=== PATIENT | female | born 1960 | race American Indian/Alaskan Native ===

== ENCOUNTER 2021-12-02 20:43 | Observation (INO) | payer OTHER, SELFPAY ==
[2021-12-02 21:30] LABS: Mucus,Urine FEW /HPF
[2021-12-02 21:32] LABS: Color,Urine Straw (Yellow)
[2021-12-02 21:33] LABS: Bilirubin,Urine NEG (Negative); Blood,Urine Trace (Negative); Protein,Urine <15 mg/dL mg/dL (Negative)
[2021-12-02 21:34] LABS: Urobilinogen,Urine < 2.0 mg/dL (<2.0)
[2021-12-03] MEDS ORDERED: MORPHINE 4 MG/1 ML INJ IV ONE ×2 (03:27→06:29)
[2021-12-03] MEDS ORDERED: ONDANSETRON 4 MG/2 ML INJ IV ONE ×2 (03:27→06:29)
--- NOTE | 2021-12-03 04:08 | Cat Scan Report ---
CT ABDOMEN AND PELVIS WITHOUT CONTRAST INDICATION / CLINICAL INFORMATION: Generalized abdominal pain. TECHNIQUE: All CT scans at this location are performed using CT dose reduction for ALARA by means of automated exposure control. COMPARISON: None available. FINDINGS: ABDOMEN: The gallbladder is surgically absent. The liver, spleen, bile ducts, pancreas, adrenal gland s and kidneys demonstrate no significant abnormality. There is no evidence of bowel obstruction or fr ee air. No adenopathy is present. There are mild atherosclerotic calcifications involving the aorta a nd its branches without aneurysm. The lung bases are clear. PELVIS: The appendix is mildly dilated and thick-walled, measuring up to 1 cm transverse. There is mi ld inflammation in the periappendiceal fat. I do not identify an appendicolith, abscess, extraluminal gas or bowel obstruction. The distal ureters and urinary bladder are normal. The uterus and adnexal regions are unremarkable. T here is no evidence of diverticulitis. I do not identify a hernia area mild spondylosis is present. IMPRESSION: Acute uncomplicated appendicitis. Signer Name: Jaun Rai MD Signed: 12/03/2021 4:03 AM Workstation Name: [id number]
[2021-12-03 04:13] LABS: Basophils # (Auto) 0.1 K/mm3 (0.0-0.1); Basophils % (Auto) 0.6 % (0.0-1.8); Eosinophils # (Auto) 0.1 K/mm3 (0.0-0.4); Eosinophils % (Auto) 0.4 % (0.0-4.3); Hematocrit 41.8 % (30.3-42.9); Hemoglobin 13.7 gm/dl (10.1-14.3); Lymphocytes # (Auto) 3.9 K/mm3 (1.2-5.4); Lymphocytes % (Auto) 25.2 % (13.4-35.0); Mean Corpuscular HGB Conc 33 % (30-34); Mean Corpuscular Volume 88 fl (79-97); Monocytes # (Auto) 0.8 K/mm3 (0.0-0.8); Monocytes % (Auto) 5.2 % (0.0-7.3); Platelet Count 322 K/mm3 (140-440); Red Blood Count 4.73 M/mm3 (3.65-5.03); Red Cell Distribution Width 14.4 % (13.2-15.2)
[2021-12-03 04:36] LABS: Alanine Aminotransferase 26 units/L (7-56); Albumin 4.4 g/dL (3.9-5); BUN/Creatinine Ratio 15; Blood Urea Nitrogen 12 mg/dL (7-17); Calcium 9.4 mg/dL (8.4-10.2); Hemolysis Index 7
--- NOTE | 2021-12-03 06:30 | Emergency Department Report ---
ED Abdominal Pain HPI - General Chief Complaint: Abdominal Pain Stated Complaint: abdominal pain PUI?: No Time Seen by Provider: 12/03/21 06:15 Source: patient Mode of arrival: Ambulatory Limitations: No Limitations - History of Present Illness Initial Comments: 61 year old who denies any significant with complaints of abd pain. Patient states that her symptoms started about 2 days ago. She describes it as a constant worsening pain with associated constipation and decrease appetite. She denies any nausea or vomiting. She states that her last bowel movement was about 3-4 days ago. She has not tried any otc meds for constipation. She denies fever, chills, UTI symptoms or any additional instructions. Her abdominal surgery in past includes cholecystectomy. MD Complaint: abdominal pain -: days(s) (2) Severity scale (0 -10): 5 - Related Data Previous Rx's Medication Instructions Recorded Last Taken Type Nitrofurantoin Haywood/M-Cryst 100 mg PO Q12HR #14 capsule 03/28/20 Unknown Rx [Macrobid CAP] Ondansetron [Zofran Odt] 4 mg PO Q8HR PRN #15 tab.rapdis 03/28/20 Unknown Rx Allergies Allergy/AdvReac Type Severity Reaction Status Date / Time No Known Allergies Allergy Unverified 03/28/20 12:24 ED Review of Systems ROS: Stated complaint: abdominal pain Other details as noted in HPI Comment: All other systems reviewed and negative Constitutional: denies: chills, fever Eyes: denies: eye pain, eye discharge, vision change ENT: denies: ear pain, throat pain, dental pain, hearing loss, epistaxis, congestion Endocrine: no symptoms reported Gastrointestinal: abdominal pain, constipation. denies: nausea, vomiting, diarrhea, hematemesis, melena, hematochezia Genitourinary: denies: urgency, dysuria, frequency, hematuria, discharge, abno rmal menses, dyspareunia Musculoskeletal: denies: back pain, joint swelling, arthralgia, myalgia Skin: denies: rash, lesions, change in color, change in hair/nails, pruritus Neurological: denies: headache, weakness, numbness, paresthesias, confusion, abnormal gait, vertigo Psychiatric: denies: anxiety, depression, visual hallucinations, homicidal thoughts, suicidal thoughts Hematological/Lymphatic: denies: easy bleeding, easy bruising, swollen glands ED Past Medical Hx - Surgical History Hx Cholecystectomy: Yes Additional Surgical History: D/C / ID - Social History Smoking Status: Never Smoker Substance Use Type: None - Medications Home Medications: Home Medications Medication Instructions Recorded Confirmed Last Taken Type Nitrofurantoin [place]wood/M-Cryst 100 mg PO Q12HR #14 capsule 03/28/20 Unknown Rx [Macrobid CAP] Ondansetron [Zofran Odt] 4 mg PO Q8HR PRN #15 tab.rapdis 03/28/20 Unknown Rx ED Physical Exam - General Limitations: No Limitations General appearance: alert, in distress (appears uncomfortable due to pain), obese - Head Head exam: Present: atraumatic, normocephalic, normal inspection - Eye Eye exam: Present: normal appearance, PERRL, EOMI Pupils: Present: normal accommodation - Neck Neck exam: Present: normal inspection, full ROM. Absent: meningismus - Respiratory Respiratory exam: Present: normal lung sounds bilaterally. Absent: respiratory distress, wheezes, rales, rhonchi - Cardiovascular Cardiovascular Exam: Present: normal rhythm, tachycardia, normal heart sounds - GI/Abdominal GI/Abdominal exam: Present: soft, tenderness (TTP right lower quandrant with guarding but no rebound or rigidity. ). Absent: distended - Neurological Exam Neurological exam: Present: alert, oriented X3, CN II-XII intact, normal gait - Psychiatric Psychiatric exam: Present: normal affect, normal mood - Skin Skin exam: Present: intact ED Course Vital Signs 12/02/21 12/03/21 20:57 07:01 Temperature 99.1 F 98.9 F Pulse Rate 116 H 86 Respiratory 15 16 Rate Blood Pressure 118/88 131/79 O2 Sat by Pulse 95 91 Oximetry ED Medical Decision Making - Lab Data Result diagrams: 12/03/21 03:31 12/03/21 03:31 - Radiology Data Radiology results: report reviewed Patient: CATRACHITA BURGESS MR#: [id number] : 1960 Acct:[id number] Age/Sex: 61 / F ADM Date: 12/02/21 Loc: ED Attending Dr: Ordering Physician: JUAN DAVID MAN MD Date of Service: 12/03/21 Procedure(s): CT abdomen pelvis wo con Accession Number(s): [id number] cc: ED DOCMD CT ABDOMEN AND PELVIS WITHOUT CONTRAST INDICATION / CLINICAL INFORMATION: Generalized abdominal pain. TECHNIQUE: All CT scans at this location are performed using CT dose reduction for ALARA by means of automated exposure control. COMPARISON: None available. FINDINGS: ABDOMEN: The gallbladder is surgically absent. The liver, spleen, bile ducts, pancreas, adrenal glands and kidneys demonstrate no significant abnormality. There is no evidence of bowel obstruction or free air. No adenopathy is present. There are mild atherosclerotic calcifications involving the aorta and its branches without aneurysm. The lung bases are clear. PELVIS: The appendix is mildly dilated and thick-walled, measuring up to 1 cm transverse. There is mild inflammation in the periappendiceal fat. I do not identify an appendicolith, abscess, extraluminal gas or bowel obstruction. The distal ureters and urinary bladder are normal. The uterus and adnexal regions are unremarkable. There is no evidence of diverticulitis. I do not identify a hernia area mild spondylosis is present. IMPRESSION: Acute uncomplicated appendicitis. Signer Name: Jaun Rai MD Signed: 12/03/2021 4:03 AM Workstation Name: [id number] Transcribed By: RT Dictated By: Jaun Ria MD Electronically Authenticated By: Jaun Rai MD Signed Date/Time: 12/03/21402 DD/ 0359 TD/TT: - Medical Decision Making 0653: Work up today shows acute uncomplicated appendicitis. Wbc is 15. Discussed results with patient and she understand reason for admission. Is currently resting comfortably but is requesting additional pain meds. Morphine 4 mg as well as repeat Zofran 4 mg ordered. She is dosing also ordered. Repeat vital signs ordered and pending. Discussed case with Dr. Jacob Silverio, general surgery on-call -patient to be admitted to the hospitalist service and he will hopefully take patient to the OR later on today 0724: Discussed case with Dr Jerez, hospitalist for admission Critical care attestation.: If time is entered above; I have spent that time in minutes in the direct care of this critically ill patient, excluding procedure time. ED Disposition Clinical Impression: Acute appendicitis Disposition: ADMITTED INPATIENT Is pt being admited?: Yes Does the pt Need Aspirin: No Condition: Stable Instructions: Abdominal Pain (ED) Referrals: PRIMARY CARE, [Primary Care Provider] - 3-5 Days
[2021-12-03] MEDS ORDERED: PIPERACILLIN/TAZOBACTAM 3.375 3.375 GM/50 ML BAG IV ONE (06:38)
[2021-12-03] MEDS ORDERED: SODIUM CHLORIDE 0.9% 1000 ML 1,000 ML IV ONE (07:16)
--- NOTE | 2021-12-03 08:00 | Consultation ---
History of Present Illness Consult date: 12/03/21 Reason for consult: abdominal pain Chief complaint: abdo pain - History of present illness History of present illness: 61 year old who denies any significant with complaints of abd pain. Patient states that her symptoms started about 2 days ago. She describes it as a constant worsening pain with associated constipation and decrease appetite. She denies any nausea or vomiting. She states that her last bowel movement was about 3-4 days ago. She has not tried any otc meds for constipation. She denies fever, chills, UTI symptoms or any additional instructions. Her abdominal surgery in past includes cholecystectomy. CT abdo with uncompicated appendicitis. Medications and Allergies Allergies Allergy/AdvReac Type Severity Reaction Status Date / Time No Known Allergies Allergy Verified 12/03/21 08:24 Home Medications Medication Instructions Recorded Confirmed Last Taken Type Nitrofurantoin Brown/M-Cryst 100 mg PO Q12HR #14 capsule 03/28/20 Unknown Rx [Macrobid CAP] Ondansetron [Zofran Odt] 4 mg PO Q8HR PRN #15 tab.rapdis 03/28/20 Unknown Rx Active Meds: Active Medications Sodium Chloride (Nacl 0.9% 1000 Ml) 1,000 mls @ 999 mls/hr IV BOLUS ONE Stop: 12/03/21 08:16 Exam Vital Signs Temp Pulse Resp BP Pulse Ox 99.1 F 116 H 15 118/88 95 12/02/21 20:57 12/02/21 20:57 12/02/21 20:57 12/02/21 20:57 12/02/21 20:57 - General physical appearance Positive: well developed, severe distress - Neck Positive: no masses, no bruits, trachea midline - Respiratory Positive: normal expansion - Cardiovascular Rhythm: regular - Extremities Extremities: no ischemia, No edema - Abdomen Abdomen: Present: soft, tender, rebound. Absent: distended, masses - Neurologic Neurologic: alert and oriented to time, place and person, motor strength and sensation are grossly intact, CN II-XII intact Results - Labs 12/03/21 03:31 12/03/21 03:31 Abnormal lab results 12/03/21 12/03/21 Range/Units 03:31 03:31 WBC 15.4 H (4.5-11.0) K/mm3 Seg Neutrophils # 10.6 H (1.8-7.7) K/mm3 Chloride 97.5 L (98-107) mmol/L Glucose 110 H (65-100) mg/dL Alkaline Phosphatase 151 H (35-129) units/L Total Protein 8.6 H (6.3-8.2) g/dL Diabetes panel 12/03/21 Range/Units 03:31 Sodium 137 (137-145) mmol/L Potassium 4.1 (3.6-5.0) mmol/L Chloride 97.5 L (98-107) mmol/L Carbon Dioxide 24 (22-30) mmol/L BUN 12 (7-17) mg/dL Creatinine 0.8 (0.6-1.2) mg/dL Glucose 110 H (65-100) mg/dL Calcium 9.4 (8.4-10.2) mg/dL AST 24 (5-40) units/L ALT 26 (7-56) units/L Alkaline Phosphatase 151 H (35-129) units/L Total Protein 8.6 H (6.3-8.2) g/dL Albumin 4.4 (3.9-5) g/dL Calcium panel 12/03/21 Range/Units 03:31 Calcium 9.4 (8.4-10.2) mg/dL Albumin 4.4 (3.9-5) g/dL Pituitary panel 12/03/21 Range/Units 03:31 Sodium 137 (137-145) mmol/L Potassium 4.1 (3.6-5.0) mmol/L Chloride 97.5 L (98-107) mmol/L Carbon Dioxide 24 (22-30) mmol/L BUN 12 (7-17) mg/dL Creatinine 0.8 (0.6-1.2) mg/dL Glucose 110 H (65-100) mg/dL Calcium 9.4 (8.4-10.2) mg/dL Adrenal panel 12/03/21 Range/Units 03:31 Sodium 137 (137-145) mmol/L Potassium 4.1 (3.6-5.0) mmol/L Chloride 97.5 L (98-107) mmol/L Carbon Dioxide 24 (22-30) mmol/L BUN 12 (7-17) mg/dL Creatinine 0.8 (0.6-1.2) mg/dL Glucose 110 H (65-100) mg/dL Calcium 9.4 (8.4-10.2) mg/dL Total Bilirubin 0.50 (0.1-1.2) mg/dL AST 24 (5-40) units/L ALT 26 (7-56) units/L Alkaline Phosphatase 151 H (35-129) units/L Total Protein 8.6 H (6.3-8.2) g/dL Albumin 4.4 (3.9-5) g/dL Assessment and Plan 61 yo female with appendicitis. Plan Lap appy later today.
[2021-12-03] MEDS ORDERED: MORPHINE 4 MG/1 ML INJ IV PRN (08:35)
--- NOTE | 2021-12-03 08:38 | Anesthesia Consultation ---
Anesthesia Consult and Med Hx Date of service: 12/03/21 - Airway Anesthetic Teeth Evaluation: Poor (some chipped and missing teeth on the bottom), Dentures, Partials (upper) ROM Head & Neck: Adequate Mental/Hyoid Distance: Adequate Mallampati Class: Class III Intubation Access Assessment: Possibly Difficult - Pre-Operative Health Status ASA Pre-Surgery Classification: ASA2 Proposed Anesthetic Plan: General - Other Systems Hx Obesity: Yes - Additional Comments Anesthesia Medical History Comments: abdominal pain, N&V, acute appendicitis
--- NOTE | 2021-12-03 08:39 | Anesthesia Day of Surgery ---
Anesthesia Day of Surgery - Day of Surgery Patient Examined: Yes Patient H&P Reviewed: Yes Patient is NPO: Yes
[2021-12-03] MEDS ORDERED: LACTATED RINGERS 1,000 ML IV SCH (08:45)
[2021-12-03] MEDS ORDERED: MIDAZOLAM 2 MG/2 ML INJ IV NR (09:00)
[2021-12-03] MEDS ORDERED: ONDANSETRON 4 MG/2 ML INJ IV PRN (09:00)
[2021-12-03] MEDS ORDERED: ACETAMINOPHEN 325 MG TAB PO PRN (09:00)
[2021-12-03] MEDS ORDERED: FAMOTIDINE 20 MG/2 ML INJ IV NR (09:00)
[2021-12-03] MEDS ORDERED: HYDROmorphone 1 MG/1 ML INJ IV PRN ×2 (09:03)
[2021-12-03] MEDS ORDERED: fentaNYL 100 MCG/2 ML INJ ONE (09:17)
[2021-12-03] MEDS ORDERED: propofoL 200 MG/20 ML VIAL IV ONE (09:17)
[2021-12-03] MEDS ORDERED: ONDANSETRON 4 MG/2 ML INJ ONE (09:17)
[2021-12-03] MEDS ORDERED: KETOROLAC 30 MG/1 ML INJ ONE (09:17)
[2021-12-03] MEDS ORDERED: KETAMINE/STERILE WATER 50 MG/ML SYRINGE ONE (09:17)
[2021-12-03] MEDS ORDERED: LIDOCAINE MPF (2%) 20 MG/1 ML VIAL 5 ML ONE (09:17)
[2021-12-03] MEDS ORDERED: ROCURONIUM 50 MG/5 ML INJ IV ONE ×2 (09:17→11:59)
[2021-12-03] MEDS: HEPARIN 5,000 UNIT/1 ML VIAL SUB-Q SCH ×3 (09:23→21:42)
[2021-12-03] MEDS ORDERED: LIDOCAINE (1%) 10 MG/1 ML VIAL 20 ML MDV ONE (09:46)
[2021-12-03] MEDS ORDERED: BUPIVACAINE/PF (0.5%) 5 MG/1 ML 30 ML VIAL INFILTRATI ONE ×2 (09:46→10:48)
[2021-12-03] MEDS ORDERED: LACTATED RINGERS 1,000 ML ONE (10:41)
[2021-12-03] MEDS ORDERED: LIDOCAINE (1%) 10 MG/1 ML VIAL 20 ML MDV INFILTRATI ONE (10:48)
[2021-12-03] MEDS ORDERED: SODIUM CHLORIDE 0.9% IRR 1,500 ML BOTTLE IR ONE (10:49)
--- NOTE | 2021-12-03 11:06 | History and Physical Report ---
History of Present Illness Date of examination: 12/03/21 Date of admission: 12/03/21 08:55 Chief complaint: Acute appendicitis History of present illness: Patient is a 61-year-old female past medical history of GERD who presented with worsening right lower quadrant pain after approximately 2 days. The patient describes her symptoms being associated with constipation, decreased appetite, nausea. She states that her last bowel movement was approximately 3 to 4 days ago. In regards to pain relief, the patient denies taking anything [id number]. The patient denies any fevers, chills, chest pain, chest pressure, cough, shortness of breath, vomiting, diarrhea, or trauma. Upon evaluation in the ED, the patient was found to be tachycardic to 116, but otherwise hemodynamically stable. CT abdomen and pelvis without contrast was performed revealing acute uncomplicated appendicitis and absence of a gallbladder. General surgery was consulted, and they recommended laparoscopic appendectomy later on today. Patient is being admitted for management of acute appendicitis. Past History Past Medical History: GERD Past Surgical History: cholecystectomy Social history: lives with family, full code Family history: hypertension Medications and Allergies Allergies Allergy/AdvReac Type Severity Reaction Status Date / Time No Known Allergies Allergy Verified 12/03/21 08:24 Home Medications Medication Instructions Recorded Confirmed Last Taken Type No Known Home Medications [No 12/03/21 12/03/21 Unknown History Reported Home Medications] Active Meds: Active Medications Acetaminophen (Acetaminophen 325 Mg Tab) 650 mg PO Q4H PRN PRN Reason: Pain MILD(1-3)/Fever >100.5/MACHUCA Docusate Sodium (Docusate Sodium 100 Mg Cap) 100 mg PO BID [facility] Famotidine (Famotidine 20 Mg/2 Ml Inj) 20 mg IV PREOP NR Stop: 12/03/21 13:00 Last Admin: 12/03/21 09:30 Dose: 20 mg Heparin Sodium (Porcine) (Heparin 5,000 Unit/1 Ml Vial) 5,000 unit SUB-Q Q8HR [facility] Last Admin: 12/03/21 09:23 Dose: 5,000 unit Hydromorphone HCl (Hydromorphone 1 Mg/1 Ml Inj) 0.25 mg IV Q10MIN PRN PRN Reason: Pain, Moderate (4-6) Stop: 12/03/21 20:00 Hydromorphone HCl (Hydromorphone 1 Mg/1 Ml Inj) 0.5 mg IV Q10MIN PRN PRN Reason: Pain , Severe (7-10) Stop: 12/03/21 20:00 Piperacillin Sod/Tazobactam Sod (Zosyn/Ns 4.5gm/100ml) 4.5 gm in 100 mls @ 200 mls/hr IV Q6HR TRINI; Protocol Lactated Ringer's (Lactated Ringers) 1,000 mls @ 100 mls/hr IV DIRECT TRINI Midazolam HCl (Midazolam 2 Mg/2 Ml Inj) 2 mg IV PREOP NR Stop: 12/03/21 23:59 Morphine Sulfate (Morphine 2 Mg/1 Ml Inj) 2 mg IV Q4H PRN PRN Reason: Pain , Severe (7-10) Ondansetron HCl (Ondansetron 4 Mg/2 Ml Inj) 4 mg IV Q8H PRN PRN Reason: Nausea And Vomiting Oxycodone/Acetaminophen (Oxycodone /Acetaminophen 5-325mg Tab) 1 tab PO Q6H PRN PRN Reason: Pain, Moderate (4-6) Sodium Chloride (Sodium Chloride 0.9% 10 Ml Flush Syringe) 10 ml IV BID TRINI Sodium Chloride (Sodium Chloride 0.9% 10 Ml Flush Syringe) 10 ml IV PRN PRN PRN Reason: LINE FLUSH Review of Systems All systems: negative Gastrointestinal: abdominal pain, nausea, constipation Exam - Constitutional Vitals: Temp Pulse Resp BP Pulse Ox 97.5 F L 90 16 142/80 88 12/03/21 08:41 12/03/21 08:41 12/03/21 08:41 12/03/21 08:41 12/03/21 08:41 General appearance: Present: mild distress, well-nourished - EENT Eyes: Present: PERRL, EOM intact ENT: hearing intact, clear oral mucosa - Neck Neck: Present: supple, normal ROM - Respiratory Respiratory effort: normal Respiratory: bilateral: CTA - Cardiovascular Rhythm: regular Heart Sounds: Present: S1 & S2 - Extremities Extremities: no ischemia, pulses intact, pulses symmetrical, No edema, normal temperature, normal color Peripheral Pulses: within normal limits - Abdominal General gastrointestinal: Present: soft, tender, non-distended, normal bowel sounds Localized gastrointestinal: tender: RLQ Female genitourinary: Present: deferred - Rectal Rectal Exam: deferred - Integumentary Integumentary: Present: clear, warm, dry - Musculoskeletal Musculoskeletal: strength equal bilaterally - Psychiatric Psychiatric: appropriate mood/affect, intact judgment & insight - Neurologic Neurologic: CNII-XII intact, moves all extremities - Allied Health Allied health notes reviewed: nursing Results - Labs CBC & Chem 7: 12/04/21 06:57 12/04/21 06:57 Labs: Laboratory Last Values WBC 15.4 K/mm3 (4.5-11.0) H 12/03/21 03:31 RBC 4.73 M/mm3 (3.65-5.03) 12/03/21 03:31 Hgb 13.7 gm/dl (10.1-14.3) 12/03/21 03:31 Hct 41.8 % (30.3-42.9) 12/03/21 03:31 MCV 88 fl (79-97) 12/03/21 03:31 MCH 29 pg (28-32) 12/03/21 03:31 MCHC 33 % (30-34) 12/03/21 03:31 RDW 14.4 % (13.2-15.2) 12/03/21 03:31 Plt Count 322 K/mm3 (140-440) 12/03/21 03:31 Lymph % (Auto) 25.2 % (13.4-35.0) 12/03/21 03:31 Barron % (Auto) 5.2 % (0.0-7.3) 12/03/21 03:31 Eos % (Auto) 0.4 % (0.0-4.3) 12/03/21 03:31 Baso % (Auto) 0.6 % (0.0-1.8) 12/03/21 03:31 Lymph # (Auto) 3.9 K/mm3 (1.2-5.4) 12/03/21 03:31 Barron # (Auto) 0.8 K/mm3 (0.0-0.8) 12/03/21 03:31 Eos # (Auto) 0.1 K/mm3 (0.0-0.4) 12/03/21 03:31 Baso # (Auto) 0.1 K/mm3 (0.0-0.1) 12/03/21 03:31 Seg Neutrophils % 68.6 % (40.0-70.0) 12/03/21 03:31 Seg Neutrophils # 10.6 K/mm3 (1.8-7.7) H 12/03/21 03:31 Sodium 137 mmol/L (137-145) 12/03/21 03:31 Potassium 4.1 mmol/L (3.6-5.0) 12/03/21 03:31 Chloride 97.5 mmol/L (98-107) L 12/03/21 03:31 Carbon Dioxide 24 mmol/L (22-30) 12/03/21 03:31 Anion Gap 20 mmol/L 12/03/21 03:31 BUN 12 mg/dL (7-17) 12/03/21 03:31 Creatinine 0.8 mg/dL (0.6-1.2) 12/03/21 03:31 Estimated GFR > 60 ml/min 12/03/21 03:31 BUN/Creatinine Ratio 15 % 12/03/21 03:31 Glucose 110 mg/dL (65-100) H 12/03/21 03:31 Calcium 9.4 mg/dL (8.4-10.2) 12/03/21 03:31 Total Bilirubin 0.50 mg/dL (0.1-1.2) 12/03/21 03:31 AST 24 units/L (5-40) 12/03/21 03:31 ALT 26 units/L (7-56) 12/03/21 03:31 Alkaline Phosphatase 151 units/L (35-129) H 12/03/21 03:31 Total Protein 8.6 g/dL (6.3-8.2) H 12/03/21 03:31 Albumin 4.4 g/dL (3.9-5) 12/03/21 03:31 Albumin/Globulin Ratio 1.0 % 12/03/21 03:31 Lipase 16 units/L (13-60) 12/03/21 03:31 Urine Color Straw (Yellow) 12/02/21 Unknown Urine Turbidity Clear (Clear) 12/02/21 Unknown Urine pH 5.0 (5.0-7.0) 12/02/21 Unknown Ur Specific [place] 1.010 (1.003-1.030) 12/02/21 Unknown Urine Protein <15 mg/dl mg/dL (Negative) 12/02/21 Unknown Urine Glucose (UA) Neg mg/dL (Negative) 12/02/21 Unknown Urine Ketones Neg mg/dL (Negative) 12/02/21 Unknown Urine Blood Trace (Negative) 12/02/21 Unknown Urine Nitrite Neg (Negative) 12/02/21 Unknown Ur Reducing Substances Not Reportable 12/02/21 Unknown Urine Bilirubin Neg (Negative) 12/02/21 Unknown Urine Ictotest Not Reportable 12/02/21 Unknown Urine Urobilinogen < 2.0 mg/dL (<2.0) 12/02/21 Unknown Ur Leukocyte Esterase Moderate (Negative) 12/02/21 Unknown Urine WBC (Auto) 2.0 /HPF (0.0-6.0) 12/02/21 Unknown Urine RBC (Auto) 5.0 /HPF (0.0-6.0) 12/02/21 Unknown U Epithel Cells (Auto) < 1.0 /HPF (0-13.0) 12/02/21 Unknown Urine Mucus Few /HPF 12/02/21 Unknown Assessment and Plan Assessment and plan: Patient is a 61-year-old female past medical history of GERD who presented with worsening right lower quadrant pain after approximately 2 days. The patient describes her symptoms being associated with constipation, decreased appetite, nausea. She states that her last bowel movement was approximately 3 to 4 days ago. In regards to pain relief, the patient denies taking anything [id number]. The patient denies any fevers, chills, chest pain, chest pressure, cough, shortness of breath, vomiting, diarrhea, or trauma. Upon evaluation in the ED, the patient was found to be tachycardic to 116, but otherwise hemodynamically stable. CT abdomen and pelvis without contrast was performed revealing acute uncomplicated appendicitis and absence of a gallbladder. General surgery was consulted, and they recommended laparoscopic appendectomy later on today. Patient is being admitted for management of acute appendicitis. #Acute uncomplicated appendicitis #SIRS Heart rate 116, WBC 15.4 CT/abdomen and pelvis noncontrast revealing acute appendicitis General surgery consulted; appreciate recs. Planning for laparoscopic appendectomy later on today. Continue n.p.o. status. Continue IV fluid resuscitation. Continue as needed analgesics. Monitor leukocytosis with daily CBC. Patient can likely be transitioned to soft GI diet after procedure. #Constipation Starting bowel regimen. Continue to monitor. #GERD Continue home PPI #Advanced care planning -Disease education conducted, care plan discussed, diagnoses discussed, prognosis discussed, and patient acknowledges understanding with care plan -Time: +30 min Advance Directives: No VTE prophylaxis?: Chemical Plan of care discussed with patient/family: Yes
[2021-12-03] MEDS ORDERED: SODIUM CHLORIDE 0.9% IRRIG SOLN 2000 ML IR ONE (11:19)
[2021-12-03] MEDS ORDERED: SUGAMMADEX SODIUM 200 MG/2 ML VIAL IV ONE (11:46)
[2021-12-03] MEDS ORDERED: dexAMETHasone 20 MG/5 ML VIAL ONE (11:59)
--- NOTE | 2021-12-03 12:36 | Operative Report ---
Operative Report Operative Report: Procedure date: 12/03/2021 Preop diagnosis: Acute appendicitis Postop diagnosis: Same Procedure: Laparoscopic appendectomy Surgeon: Dr. Silverio Anesthesia: General endotracheal Estimated blood loss: 50 cc Specimen: Appendix Findings: This patient presents with a acute appendicitis diagnosed on CAT scan. She is taken to the OR and under general endotracheal anesthesia timeouts and consents are obtained. An [place] catheter is placed. Abdomen is prepped with ChloraPrep and 3 minutes later draped in a sterile fashion. A 2 mm incision is made in the left upper quadrant and Veress needle was used to gain access peritoneal cavity. Abdomen is insufflated with CO2. 5 Terry port is placed in the right upper quadrant and in the low midline. A 10 mm port is placed supraumbilically. An additional 5 Terry port was placed for exposure. The appendix is identified in the right lower quadrant and grasped with graspers. The endoscopic CHUY stapler is used to separate the appendix from the base of the cecum. Harmonic scalpel was used to divide the mesoappendix. Specimen is then placed in a specimen bag and extracted through the 10 mm port. The fascial defect is then closed with a Zach Booth system and a 2-0 Vicryl stitch. Skin is then closed with diana.
--- NOTE | 2021-12-03 12:53 | Post Anesthesia Evaluation ---
- Post Anesthesia Evaluation Patient Participated: Yes Airway Patent: Yes Stable Respiratory Function: Yes Nausea/Vomiting: Yes Temp > 96.8F: Yes Pain Manageable: Yes Adequeate Hydration: Yes Anesthesia Complications: No
[2021-12-03] MEDS: PIPERACIL/TAZOBACTA 4.5/NS 100 4.5 GM/100 ML VIAL IV SCH ×2 (17:30→17:43)
[2021-12-03] MEDS: MORPHINE 2 MG/1 ML INJ IV PRN (17:43)
[2021-12-03] MEDS: LACTATED RINGERS 1,000 ML IV SCH (17:44)
[2021-12-03] MEDS: DOCUSATE SODIUM 100 MG CAP PO SCH (21:42)
[2021-12-03] MEDS: oxyCODONE /ACETAMINOPHEN 5-325MG TAB PO PRN (21:49)
[2021-12-04] MEDS: PIPERACIL/TAZOBACTA 4.5/NS 100 4.5 GM/100 ML VIAL IV SCH ×5 (00:34→23:40)
[2021-12-04] MEDS: LACTATED RINGERS 1,000 ML IV SCH (04:48)
[2021-12-04] MEDS: MORPHINE 2 MG/1 ML INJ IV PRN (04:50)
[2021-12-04] MEDS: HEPARIN 5,000 UNIT/1 ML VIAL SUB-Q SCH ×3 (05:00→22:13)
--- NOTE | 2021-12-04 06:45 | Progress Note ---
Assessment and Plan Patient is postop day 1 status post laparoscopic appendectomy she is tolerating her diet marginally. Consider discharge later today. CBC also is pending at the time of this dictation and will determine whether she needs additional antibiotics. CBC with a white count 18,000 would appreciate IV antibiotics an additional 24 hours prior to discharge. Subjective Date of service: 12/04/21 Objective Vital Signs - 12hr 12/04/21 02:00 Respiratory 18 Rate O2 Sat by Pulse 96 Oximetry - Labs 12/04/21 06:57 12/04/21 06:57
[2021-12-04 07:37] LABS: Basophils % (Auto) 0.1 % (0.0-1.8); Hematocrit 36.8 % (30.3-42.9); Hemoglobin 11.9 gm/dl (10.1-14.3); Lymphocytes # (Auto) 2.3 K/mm3 (1.2-5.4); Lymphocytes % (Auto) 12.4 % (13.4-35.0); Mean Corpuscular HGB Conc 32 % (30-34); Mean Corpuscular Volume 89 fl (79-97); Monocytes # (Auto) 0.9 K/mm3 (0.0-0.8); Platelet Count 278 K/mm3 (140-440); Red Blood Count 4.12 M/mm3 (3.65-5.03); Red Cell Distribution Width 14.7 % (13.2-15.2)
[2021-12-04 08:04] LABS: Alanine Aminotransferase 23 units/L (7-56); Albumin 3.8 g/dL (3.9-5); Blood Urea Nitrogen 14 mg/dL (7-17); Calcium 8.5 mg/dL (8.4-10.2); Hemolysis Index 0
[2021-12-04 08:12] LABS: BUN/Creatinine Ratio 20
[2021-12-04] MEDS: DOCUSATE SODIUM 100 MG CAP PO SCH ×2 (09:51→22:13)
[2021-12-04] MEDS: NIFEdipine XL 30 MG TAB PO SCH (14:06)
[2021-12-04] MEDS: oxyCODONE /ACETAMINOPHEN 5-325MG TAB PO PRN (14:07)
--- NOTE | 2021-12-04 14:09 | Progress Note ---
Assessment and Plan Assessment and plan: Patient is a 61-year-old female past medical history of GERD who presented with worsening right lower quadrant pain after approximately 2 days. The patient describes her symptoms being associated with constipation, decreased appetite, nausea. She states that her last bowel movement was approximately 3 to 4 days ago. In regards to pain relief, the patient denies taking anything over-the-co unter. The patient denies any fevers, chills, chest pain, chest pressure, cough, shortness of breath, vomiting, diarrhea, or trauma. Upon evaluation in the ED, the patient was found to be tachycardic to 116, but otherwise hemodynamically stable. CT abdomen and pelvis without contrast was performed revealing acute uncomplicated appendicitis and absence of a gallbladder. General surgery was consulted, and they recommended laparoscopic appendectomy later on today. Patient is being admitted for management of acute appendicitis. #Acute uncomplicated appendicitis status post laparoscopic appendectomy #SIRSresolved #Leukocytosisworsened WBC 15.4--> 18.8 CT/abdomen and pelvis noncontrast revealing acute appendicitis General surgery consulted; appreciate recs. Encourage patient to ambulate and consume p.o. intake as tolerated. Patient expresses understanding. Continue soft GI diet. Continue IV fluid resuscitation. Continue as needed analgesics. Monitor leukocytosis with daily CBC. Patient will require an additional 24hours to monitor for improvement of WBC #Constipation Continue bowel regimen. Continue to monitor. #GERD Continue home PPI #Advanced care planning -Disease education conducted, care plan discussed, diagnoses discussed, prognosis discussed, and patient acknowledges understanding with care plan -Time: +30 min #Discharge planning - Patient is pending improvement of leukocytosis - Case management has been made aware. - Discharge is tentatively 24-48 hours Disposition Plan: Continue medical management Total Time Spent with Patient (Minutes): 30 minutes History Interval history: Patient underwent laparoscopic appendectomy with general surgery on 12/03/2021, and the patient tolerated the procedure well. Hospitalist Physical - Constitutional Vitals: Temp Pulse Resp BP Pulse Ox 97.9 F 88 22 129/84 95 12/04/21 12:13 12/04/21 12:13 12/04/21 12:13 12/04/21 12:13 12/04/21 12:13 General appearance: Present: mild distress, well-nourished - EENT Eyes: Present: PERRL, EOM intact ENT: hearing intact, clear oral mucosa, dentition normal - Neck Neck: Present: supple, normal ROM - Respiratory Respiratory effort: normal Respiratory: bilateral: CTA - Cardiovascular Rhythm: regular Heart Sounds: Present: S1 & S2 - Extremities Extremities: no ischemia, pulses intact, pulses symmetrical, No edema, normal temperature, normal color, Full ROM Peripheral Pulses: within normal limits - Abdominal General gastrointestinal: soft, tender (Appropriate tenderness at incision sites), non-distended, hypoactive bowel sounds - Integumentary Integumentary: Present: clear, warm, dry - Psychiatric Psychiatric: appropriate mood/affect, intact judgment & insight, memory intact, cooperative - Neurologic Neurologic: CNII-XII intact, moves all extremities - Allied Health Allied health notes reviewed: nursing Results - Labs CBC & Chem 7: 12/04/21 06:57 12/04/21 06:57 Labs: Laboratory Last Values WBC 18.8 K/mm3 (4.5-11.0) H 12/04/21 06:57 RBC 4.12 M/mm3 (3.65-5.03) 12/04/21 06:57 Hgb 11.9 gm/dl (10.1-14.3) 12/04/21 06:57 Hct 36.8 % (30.3-42.9) 12/04/21 06:57 MCV 89 fl (79-97) 12/04/21 06:57 MCH 29 pg (28-32) 12/04/21 06:57 MCHC 32 % (30-34) 12/04/21 06:57 RDW 14.7 % (13.2-15.2) 12/04/21 06:57 Plt Count 278 K/mm3 (140-440) 12/04/21 06:57 Lymph % (Auto) 12.4 % (13.4-35.0) L 12/04/21 06:57 [place] % (Auto) 5.0 % (0.0-7.3) 12/04/21 06:57 Eos % (Auto) 0.0 % (0.0-4.3) 12/04/21 06:57 Baso % (Auto) 0.1 % (0.0-1.8) 12/04/21 06:57 Lymph # (Auto) 2.3 K/mm3 (1.2-5.4) 12/04/21 06:57 [place] # (Auto) 0.9 K/mm3 (0.0-0.8) H 12/04/21 06:57 Eos # (Auto) 0.0 K/mm3 (0.0-0.4) 12/04/21 06:57 Baso # (Auto) 0.0 K/mm3 (0.0-0.1) 12/04/21 06:57 Seg Neutrophils % 82.5 % (40.0-70.0) H 12/04/21 06:57 Seg Neutrophils # 15.5 K/mm3 (1.8-7.7) H 12/04/21 06:57 Sodium 141 mmol/L (137-145) 12/04/21 06:57 Potassium 4.1 mmol/L (3.6-5.0) 12/04/21 06:57 Chloride 105.9 mmol/L (98-107) 12/04/21 06:57 Carbon Dioxide 23 mmol/L (22-30) 12/04/21 06:57 Anion Gap 16 mmol/L 12/04/21 06:57 BUN 14 mg/dL (7-17) 12/04/21 06:57 Creatinine 0.7 mg/dL (0.6-1.2) 12/04/21 06:57 Estimated GFR > 60 ml/min 12/04/21 06:57 BUN/Creatinine Ratio 20 % 12/04/21 06:57 Glucose 112 mg/dL (65-100) H 12/04/21 06:57 Calcium 8.5 mg/dL (8.4-10.2) 12/04/21 06:57 Total Bilirubin 0.40 mg/dL (0.1-1.2) 12/04/21 06:57 AST 23 units/L (5-40) 12/04/21 06:57 ALT 23 units/L (7-56) 12/04/21 06:57 Alkaline Phosphatase 120 units/L (35-129) 12/04/21 06:57 Total Protein 7.4 g/dL (6.3-8.2) 12/04/21 06:57 Albumin 3.8 g/dL (3.9-5) L 12/04/21 06:57 Albumin/Globulin Ratio 1.1 % 12/04/21 06:57 Lipase 16 units/L (13-60) 12/03/21 03:31 Urine Color Straw (Yellow) 12/02/21 Unknown Urine Turbidity Clear (Clear) 12/02/21 Unknown Urine pH 5.0 (5.0-7.0) 12/02/21 Unknown Ur Specific [place] 1.010 (1.003-1.030) 12/02/21 Unknown Urine Protein <15 mg/dl mg/dL (Negative) 12/02/21 Unknown Urine Glucose (UA) Neg mg/dL (Negative) 12/02/21 Unknown Urine Ketones Neg mg/dL (Negative) 12/02/21 Unknown Urine Blood Trace (Negative) 12/02/21 Unknown Urine Nitrite Neg (Negative) 12/02/21 Unknown Ur Reducing Substances Not Reportable 12/02/21 Unknown Urine Bilirubin Neg (Negative) 12/02/21 Unknown Urine Ictotest Not Reportable 12/02/21 Unknown Urine Urobilinogen < 2.0 mg/dL (<2.0) 12/02/21 Unknown Ur Leukocyte Esterase Moderate (Negative) 12/02/21 Unknown Urine WBC (Auto) 2.0 /HPF (0.0-6.0) 12/02/21 Unknown Urine RBC (Auto) 5.0 /HPF (0.0-6.0) 12/02/21 Unknown U Epithel Cells (Auto) < 1.0 /HPF (0-13.0) 12/02/21 Unknown Urine Mucus Few /HPF 12/02/21 Unknown [place]/IV: Voiding Method Toilet Active Medications - Current Medications Current Medications: Generic Name Dose Route Start Last Admin Trade Name Alex PRN Reason Stop Dose Admin Acetaminophen 650 mg 12/03/21 09:00 Acetaminophen 325 Mg Tab PO Q4H PRN Pain MILD(1-3)/Fever >100.5/MACHUCA Docusate Sodium 100 mg 12/03/21 22:00 12/04/21 09:51 Docusate Sodium 100 Mg Cap PO 100 mg BID TRINI Administration Heparin Sodium (Porcine) 5,000 unit 12/03/21 09:00 12/04/21 05:00 Heparin 5,000 Unit/1 Ml Vial SUB-Q 5,000 unit Q8HR TRINI Administration Piperacillin Sod/Tazobactam Sod 4.5 gm in 100 mls @ 200 mls/hr 12/03/21 12:00 12/04/21 06:38 Zosyn/Ns 4.5gm/100ml IV Infused Q6HR TRINI Infusion Protocol Lactated Ringer's 1,000 mls @ 100 mls/hr 12/03/21 09:00 12/04/21 04:48 Lactated Ringers IV 100 mls/hr DIRECT TRINI Administration Morphine Sulfate 2 mg 12/03/21 09:02 12/04/21 04:50 Morphine 2 Mg/1 Ml Inj IV 2 mg Q4H PRN Administration Pain , Severe (7-10) Nifedipine 30 mg 12/04/21 11:00 Nifedipine Xl 30 Mg Tab PO QDAY TRINI Ondansetron HCl 4 mg 12/03/21 09:00 12/03/21 17:43 Ondansetron 4 Mg/2 Ml Inj IV 4 mg Q8H PRN Administration Nausea And Vomiting Oxycodone/Acetaminophen 1 tab 12/03/21 09:00 12/03/21 21:49 Oxycodone /Acetaminophen 5-325mg Tab PO 1 tab Q6H PRN Administration Pain, Moderate (4-6) Sodium Chloride 10 ml 12/03/21 10:00 12/04/21 09:51 Sodium Chloride 0.9% 10 Ml Flush Syringe IV 10 ml BID TRINI Administration Sodium Chloride 10 ml 12/03/21 08:35 Sodium Chloride 0.9% 10 Ml Flush Syringe IV PRN PRN LINE FLUSH
[2021-12-05] MEDS: PIPERACIL/TAZOBACTA 4.5/NS 100 4.5 GM/100 ML VIAL IV SCH (05:25)
[2021-12-05] MEDS: HEPARIN 5,000 UNIT/1 ML VIAL SUB-Q SCH (05:25)
[2021-12-05 06:26] LABS: Hematocrit 38.5 % (30.3-42.9); Hemoglobin 12.4 gm/dl (10.1-14.3); Mean Corpuscular HGB Conc 32 % (30-34); Mean Corpuscular Volume 89 fl (79-97); Platelet Count 302 K/mm3 (140-440); Red Blood Count 4.32 M/mm3 (3.65-5.03); Red Cell Distribution Width 14.5 % (13.2-15.2)
[2021-12-05 06:46] LABS: Blood Urea Nitrogen 13 mg/dL (7-17); Calcium 8.7 mg/dL (8.4-10.2); Hemolysis Index 0
[2021-12-05 06:52] LABS: BUN/Creatinine Ratio 19
--- NOTE | 2021-12-05 07:36 | Progress Note ---
Assessment and Plan Patient is postop day 2 status post laparoscopic appendectomy she is tolerating her diet. Surgically cleared for discharge later today. Follow-up with me in 1 week. Subjective Date of service: 12/05/21 Narrative: Postop day #2 status post laparoscopic appendectomy. Objective Vital Signs - 12hr 12/04/21 12/05/21 12/05/21 22:31 00:00 03:49 Temperature 97.9 F 98.1 F Pulse Rate 96 H 100 H Respiratory 16 20 16 Rate Blood Pressure 112/75 137/88 O2 Sat by Pulse 96 98 93 Oximetry - Labs 12/05/21 05:34 12/05/21 05:34 Diabetes panel 12/04/21 12/05/21 Range/Units 06:57 05:34 Sodium 141 143 (137-145) mmol/L Potassium 4.1 3.9 (3.6-5.0) mmol/L Chloride 105.9 106.0 (98-107) mmol/L Carbon Dioxide 23 24 (22-30) mmol/L BUN 14 13 (7-17) mg/dL Creatinine 0.7 0.7 (0.6-1.2) mg/dL Glucose 112 H 90 (65-100) mg/dL Calcium 8.5 8.7 (8.4-10.2) mg/dL AST 23 (5-40) units/L ALT 23 (7-56) units/L Alkaline Phosphatase 120 (35-129) units/L Total Protein 7.4 (6.3-8.2) g/dL Albumin 3.8 L (3.9-5) g/dL Calcium panel 12/04/21 12/05/21 Range/Units 06:57 05:34 Calcium 8.5 8.7 (8.4-10.2) mg/dL Albumin 3.8 L (3.9-5) g/dL Pituitary panel 12/04/21 12/05/21 Range/Units 06:57 05:34 Sodium 141 143 (137-145) mmol/L Potassium 4.1 3.9 (3.6-5.0) mmol/L Chloride 105.9 106.0 (98-107) mmol/L Carbon Dioxide 23 24 (22-30) mmol/L BUN 14 13 (7-17) mg/dL Creatinine 0.7 0.7 (0.6-1.2) mg/dL Glucose 112 H 90 (65-100) mg/dL Calcium 8.5 8.7 (8.4-10.2) mg/dL Adrenal panel 12/04/21 12/05/21 Range/Units 06:57 05:34 Sodium 141 143 (137-145) mmol/L Potassium 4.1 3.9 (3.6-5.0) mmol/L Chloride 105.9 106.0 (98-107) mmol/L Carbon Dioxide 23 24 (22-30) mmol/L BUN 14 13 (7-17) mg/dL Creatinine 0.7 0.7 (0.6-1.2) mg/dL Glucose 112 H 90 (65-100) mg/dL Calcium 8.5 8.7 (8.4-10.2) mg/dL Total Bilirubin 0.40 (0.1-1.2) mg/dL AST 23 (5-40) units/L ALT 23 (7-56) units/L Alkaline Phosphatase 120 (35-129) units/L Total Protein 7.4 (6.3-8.2) g/dL Albumin 3.8 L (3.9-5) g/dL
[2021-12-05 09:31] LABS: Total Cells Counted 100
[2021-12-05 09:32] LABS: Basophils % (Manual) 0 % (0.0-1.8); Eosinophils % (Manual) 0 % (0.0-4.3); Platelet Estimate Consistent w Auto; RBC Morphology Normal
[2021-12-05] MEDS ORDERED: traMADol 50 MG TAB PO PRN (10:40)
[2021-12-05] MEDS: DOCUSATE SODIUM 100 MG CAP PO SCH (10:42)
[2021-12-05] MEDS: NIFEdipine XL 30 MG TAB PO SCH (10:43)
[2021-12-05] MEDS ORDERED: LACTATED RINGERS 1,000 ML IV ONE (11:00)
[2021-12-05] MEDS ORDERED: metroNIDAZOLE 500 MG TAB PO SCH (12:00)
[2021-12-05] MEDS ORDERED: levoFLOXacin 500 MG TAB PO SCH (12:00)
--- NOTE | 2021-12-05 12:11 | Discharge Summary ---
Providers - Providers Date of Admission: 12/03/21 08:55 Date of discharge: 12/05/21 Attending physician: AMANDEEP CASE MD 12/03/21 06:53 Consult to Physician [CONS] Stat Comment: ELENA Flannery spoke with Dr. Silverio @ [phone] Consulting Provider: ALBANIA SILVERIO Physician Instructions: Reason For Exam: Acute appendicitis Primary care physician: MACHINE FORMER Hospitalization Reason for admission: Acute uncomplicated appendicitis Condition: Stable Pertinent studies: Reviewed. Procedures: Laparoscopic appendectomy Hospital course: Patient is a 61-year-old female past medical history of GERD who presented with worsening right lower quadrant pain after approximately 2 days. The patient describes her symptoms being associated with constipation, decreased appetite, nausea. She states that her last bowel movement was approximately 3 to 4 days ago. In regards to pain relief, the patient denies taking anything [id number]. The patient denies any fevers, chills, chest pain, chest pressure, cough, shortness of breath, vomiting, diarrhea, or trauma. Upon evaluation in the ED, the patient was found to be tachycardic to 116, but otherwise hemodynamically stable. CT abdomen and pelvis without contrast was performed revealing acute uncomplicated appendicitis and absence of a gallbladder. General surgery was consulted, and they recommended laparoscopic appendectomy later on today. Patient was admitted for management of acute nataly endicitis. Patient underwent laparoscopic appendectomy with general surgery on 12/03/2021 without any complications. The following day, the patient experienced worsening in her leukocytosis from 15.4-18.8. The patient stayed an additional night to continue IV antibiotics. The patient has shown clinical improvement as she remains afebrile, her leukocytosis is improving, and she remains hemodynamically stable. Patient will be discharged with a total 5-day course of antibiotics. Patient will be transition from Zosyn 4.5 g every 6 hours to p.o. metronidazole 500 mg every 8 hours and Levaquin 750 mg every 24 hours. Patient expresses understanding. Patient will follow with general surgery in approximately 1 week. Patient is medically clear for discharge. Disposition: 01 HOME / SELF CARE / HOMELESS Final Discharge Diagnosis (Prints w/discharge instructions): Acute uncomplicated appendicitis status post laparoscopic appendectomy, SIRS, leukocytosis, constipation, GERD, obesity. Time spent for discharge: 45 min Core Measure Documentation - Palliative Care Palliative Care/ Comfort Measures: Not Applicable - Core Measures Any of the following diagnoses?: none Exam - Constitutional Vitals: Temp Pulse Resp BP Pulse Ox 98.1 F 100 H 16 137/88 93 12/05/21 03:49 12/05/21 03:49 12/05/21 03:49 12/05/21 03:49 12/05/21 03:49 General appearance: Present: no acute distress, well-nourished, obese - EENT Eyes: Present: PERRL, EOM intact ENT: hearing intact, clear oral mucosa, dentition normal - Neck Neck: Present: supple, normal ROM - Respiratory Respiratory effort: normal Respiratory: bilateral: CTA - Cardiovascular Rhythm: regular Heart Sounds: Present: S1 & S2 - Extremities Extremities: no ischemia, pulses intact, pulses symmetrical, No edema, normal temperature, normal color, Full ROM Peripheral Pulses: within normal limits - Abdominal General gastrointestinal: Present: soft, tender (Appropriate tenderness at incision sites), non-distended, normal bowel sounds Female genitourinary: Present: deferred - Rectal Rectal Exam: deferred - Integumentary Integumentary: Present: clear, warm, dry - Musculoskeletal Musculoskeletal: strength equal bilaterally - Psychiatric Psychiatric: appropriate mood/affect, intact judgment & insight, memory intact, cooperative - Neurologic Neurologic: CNII-XII intact, moves all extremities - Allied Health Allied health notes reviewed: nursing Plan Activity: advance as tolerated Diet: low fat Wound: per your surgeon's advice Additional Instructions: Patient is a 61-year-old female past medical history of GERD who presented with worsening right lower quadrant pain after approximately 2 days. The patient describes her symptoms being associated with constipation, decreased appetite, nausea. She states that her last bowel movement was a pproximately 3 to 4 days ago. In regards to pain relief, the patient denies taking anything [id number]. The patient denies any fevers, chills, chest pain, chest pressure, cough, shortness of breath, vomiting, diarrhea, or trauma. Upon evaluation in the ED, the patient was found to be tachycardic to 116, but otherwise hemodynamically stable. CT abdomen and pelvis without contrast was performed revealing acute uncomplicated appendicitis and absence of a gallbladder. General surgery was consulted, and they recommended laparoscopic appendectomy later on today. Patient was admitted for management of acute appendicitis. Patient underwent laparoscopic appendectomy with general surgery on 12/03/2021 without any complications. The following day, the patient experienced worsening in her leukocytosis from 15.4-18.8. The patient stayed an additional night to continue IV antibiotics. The patient has shown clinical improvement as she remains afebrile, her leukocytosis is improving, and she remains hemodynamically stable. Patient will be discharged with a total 5-day course of antibiotics. Patient will be transition from Zosyn 4.5 g every 6 hours to p.o. metronidazole 500 mg every 8 hours and Levaquin 750 mg every 24 hours. Patient expresses understanding. Patient will follow with general surgery in approximately 1 week. Patient is medically clear for discharge. Care Plan Goals: Patient is medically clear for discharge. Assessment: Patient is a 61-year-old female past medical history of GERD who presented with worsening right lower quadrant pain after approximately 2 days. The patient describes her symptoms being associated with constipation, decreased appetite, nausea. She states that her last bowel movement was approximately 3 to 4 days ago. In regards to pain relief, the patient denies taking anything [id number]. The patient denies any fevers, chills, chest pain, chest pressure, cough, shortness of breath, vomiting, diarrhea, or trauma. Upon evaluation in the ED, the patient was found to be tachycardic to 116, but otherwise hemodynamically stable. CT abdomen and pelvis without contrast was performed revealing acute uncomplicated appendicitis and absence of a gallbladder. General surgery was consulted, and they recommended laparoscopic appendectomy later on today. Patient was admitted for management of acute appendicitis. Patient underwent laparoscopic appendectomy with general surgery on 12/03/2021 without any complications. The following day, the patient experienced worsening in her leukocytosis from 15.4-18.8. The patient stayed an additional night to continue IV antibiotics. The patient has shown clinical improvement as she remains afebrile, her leukocytosis is improving, and she remains hemodynamically stable. Patient will be discharged with a total 5-day course of antibiotics. Patient will be transition from Zosyn 4.5 g every 6 hours to p.o. metronidazole 500 mg every 8 hours and Levaquin 750 mg every 24 hours. Patient expresses understanding. Patient will follow with general surgery in approximately 1 week. Patient is medically clear for discharge. Follow up with: CHAPINCITO SCHUSTER MD [Staff Physician] - 7 Days PRIMARY CAREMD [Primary Care Provider] - 3-5 Days ALBANIA SILVERIO MD [Staff Physician] - 7 Days Forms: Work/School Release Form Prescriptions: Docusate Sodium [Colace CAP] 100 mg PO BID #30 capsule metroNIDAZOLE [Flagyl TAB] 500 mg PO Q8HR #8 tablet levoFLOXacin [Levaquin TAB] 750 mg PO Q24HR #3 tablet traMADoL [Ultram 50 MG tab] 25 mg PO Q6HR PRN #16 tablet PRN Reason: Pain, Moderate (4-6)
[2021-12-05 17:58] VITALS: BP 144/95
== END 2021-12-05 18:37 | disposition home or self-care (01) ==
LOC: ED 20:43 → OR 12-03 08:54 → 3A 12-03 08:55
PROVIDERS: ADMIT Student in an Organized Health Care Education/Training Program; ATTEND Student in an Organized Health Care Education/Training Program
DX: K35.80 Unspecified acute appendicitis (principal); R65.10 Systemic inflammatory response syndrome (SIRS) of non-infectious origin without acute organ dysfunction; K21.9 Gastro-esophageal reflux disease without esophagitis; K59.00 Constipation, unspecified; E66.9 Obesity, unspecified; D72.829 Elevated white blood cell count, unspecified; R74.01 Elevation of levels of liver transaminase levels; Z90.49 Acquired absence of other specified parts of digestive tract; Z68.33 Body mass index [BMI] 33.0-33.9, adult; Z79.899 Other long term (current) drug therapy; Z98.890 Other specified postprocedural states
CPT/HCPCS: 36415; 44970; 74176; 80048; 80053; 81001; 83690; 85007; 85025; 88304; 96365; 96366; 96372; 96375; 96376; 99284; G0378; J1100; J1644; J1885; J2250; J2270; J2405; J2543; J2704; J3010; J3490; J7030; J7120; Q0162